=== PATIENT | female | born 1950 ===

== ENCOUNTER → 2018-10-27 | Outpatient (REF) ==
[2018-10-27 16:16] LABS: ALBUMIN 3.8 gm/dL (3.5-5.0); CALCIUM 9.2 mg/dL (8.4-10.2); PHOSPHOROUS 4.5 mg/dL (2.5-4.5)
== END ==
LOC: ZMSC 15:54
PROVIDERS: Student in an Organized Health Care Education/Training Program
DX: Z01.89 Encounter for other specified special examinations (principal)

== ENCOUNTER → 2018-10-28 | Outpatient (REF) ==
[2018-10-28 06:20] LABS: ALBUMIN 3.3 gm/dL (3.5-5.0); CALCIUM 8.6 mg/dL (8.4-10.2); PHOSPHOROUS 5.5 mg/dL (2.5-4.5)
[2018-10-28 16:19] LABS: ALBUMIN 3.5 gm/dL (3.5-5.0); CALCIUM 8.5 mg/dL (8.4-10.2); PHOSPHOROUS 4.1 mg/dL (2.5-4.5)
== END ==
LOC: ZMSC 06:10
PROVIDERS: Student in an Organized Health Care Education/Training Program
DX: Z01.89 Encounter for other specified special examinations (principal)